=== PATIENT | female | born 1960 | race Caucasian/White ===

== ENCOUNTER 2020-10-25 20:03 | Emergency (ER) | payer OTHER, SELFPAY ==
[2020-10-25] VITALS (22 sets, daily range): BP systolic 138–188; BP diastolic 74–117; PULSE 71–86; RESP 14–23; TEMP 36.9; O2SAT 96–100
--- NOTE | ~2020-10-25 | CT_ITS ---
EXAMINATION: CT BRAIN W/O DATE: 10/25/2020 22:20 INDICATION: Headache TECHNIQUE: Computed tomography (CT) of the head was performed without intravenous contrast. The dose- length product was 605.33 mGy-cm. The mA was adjusted according to patient size. Iterative reconstruc tion technique was employed. COMPARISON: No prior studies for comparison. FINDINGS: Normal brain parenchymal volume for age. Normal sigala-white differentiation. No acute intrac ranial hemorrhage, infarction, mass or mass effect. There is metallic artifact in the right middle cr anial fossa medially, possibly aneurysm clip. Correlate clinically. No ventriculomegaly or midline shift. Midline sagittal images demonstrate a normal corpus callosum, c raniovertebral junction and sella turcica. Basilar cisterns are patent. Paranasal sinuses and mastoids are pneumatized. No depressed skull fractures. IMPRESSION: 1. No acute intracranial abnormality. Reviewed, dictated and finalized at location A. NG SOAKER
--- NOTE | ~2020-10-25 | XR_ITS ---
XR chest 2V 10/25/2020 21:05 Indication: Hypertension. Headache. Procedure: 2 view chest Comparison: 01/08/2017 Findings: There are infiltrates of the left mid and lower lung zone. There is pleural thickening in t he left lower thorax. Small left effusion. No acute osseous abnormality. Status post cholecystectomy. No pneumothorax. No edema. No acute osseous abnormality. Impression: 1: Focal consolidation left mid and lower lung zone which may represent atelectasis/scarring or pneum onia. 2: Small left pleural effusion versus pleural thickening. Reviewed, dictated and finalized at location A. R TECHNICIAN Impression: 1: Focal consolidation left mid and lower lung zone which may represent atelect asis/scarring or pneumonia. 2: Small left pleural effusion versus pleural thickening.
--- NOTE | 2020-10-25 20:14 | ECG_ITS ---
Measurements Intervals [place] Rate: 74 P: 28 MA: 138 QRS: -6 QRSD: 102 T: 31 QT: 404 QTc: 451 Interpretive Statements SINUS RHYTHM NORMAL ECG Electronically Signed On 10-26-2020 7:15:02 CUSTOM FURRIER by Miah Brewer D.O.
--- NOTE | 2020-10-25 20:59 | PC.NURSE ---
Patient being taken to xray.
[2020-10-25 21:17] LABS: Basophils Percent Auto 0.4 % (0.2-1.2); Eosinophils Absolute Auto 0.2 K/mm3 (0-0.3); Eosinophils Percent Auto 2.7 % (0-4.4); Hematocrit 38.5 % (37.0-47.0); Hemoglobin 12.5 g/dL (12.0-15.0); Immature Granulocyte Absolute 0.03 K/mm3 (0.00-0.031); Immature Granulocyte Percent A 0.4 % (0-0.5); Lymphocytes Absolute Auto 2.53 K/mm3 (0.9-3.2); Lymphocytes Percent Auto 36.2 % (18.3-44.2); Mean Corpuscular HGB Conc 32.5 g/dl (32-36); Mean Corpuscular Hemoglobin 27.7 pg (26-34); Mean Corpuscular Volume 85.4 fl (80-100); Mean Platelet Volume 10.4 fl (7.4-10.4); Monocytes Absolute Auto 0.6 K/mm3 (0.1-0.6); Neutrophils Absolute Auto 3.6 K/mm3 (1.3-6.7); Neutrophils Percent Auto 51.3 % (45.5-73.1); Platelet Count Result 247 k/mm3 (150-375); Red Blood Count 4.51 M/mm3 (4.2-5.4); Red Cell Distribution Width 14.2 % (11.5-14.5)
--- NOTE | 2020-10-25 21:23 | ED.GENADULT ---
HPI - General Adult General Chief complaint: Recheck/Abnormal Lab/Rx Stated complaint: elevated blood pressure Time Seen by Provider: 10/25/20 21:07 Source: patient Mode of arrival: ambulatory Limitations: no limitations History of Present Illness HPI narrative: Patient is 60-year-old female complaining of elevated blood pressure accompanied by headache, frontal, dull, 6 out of 10, nonradiating, intermittent set approximately 3 days ago. Patient also states that she had palpitations yesterday but none today. Patient denies any speech or visual disturbance, weakness, numbness, unsteady gait, chest pain, shortness of breath, dull pain, nausea, vomiting, diaphoresis, fever or chills. Patient denies any history of hypertension. Related Data Allergies Allergy/AdvReac Type Severity Reaction Status Date / Time No Known Allergies Allergy Verified 10/25/20 20:39 Review of Systems Review of Systems: All systems reviewed & are unremarkable except as noted in HPI and below Constitutional: Constitutional: Denies body ache(s), Denies chills, Denies excessive sweating, Denies fatigue, Denies fever(s), Denies headache(s), Denies lethargy, Denies malaise, Denies weakness and Denies weight loss Eyes: Eyes: Denies blurry vision, Denies change in vision and Denies loss of vision ENT: Denies dizziness, Denies ear discharge, Denies headache(s), Denies lip swelling, Denies epistaxis, Denies nasal congestion, Denies neck pain, Denies throat swelling and Denies tongue swelling Cardiovascular: Cardiovascular: Denies chest pain, Denies chest pain at rest, Denies chest pain with activity, Denies diaphoresis, Denies rapid heart rate, Denies edema, Denies irregular heart rhythm, Denies lightheadedness, Denies dyspnea and Denies dyspnea on exertion Respiratory: Respiratory: Denies chest congestion, Denies cough, Denies hemoptysis, Denies dyspnea and Denies dyspnea on exertion Gastrointestinal: Gastrointestinal: Denies abdominal pain, Denies melena, Denies hematochezia, Denies diarrhea, Denies nausea, Denies vomiting and Denies hematemesis Musculoskeletal: Musculoskeletal: Denies abnormal gait, Denies deformity, Denies joint swelling, Denies limited range of motion, Denies neck pain and Denies numbness Neurologic: Denies Abnormal speech present, Denies abnormal gait, Denies confusion, Denies dizziness, Denies focal weakness, Denies loss of vision, Denies numbness, Denies Other visual disturbances, Denies Sensory deficit (Neuro) and Denies weakness Psychiatric: Psychiatric: Denies confusion, Denies depression, Denies auditory hallucinations, Denies homicidal ideation and Denies suicidal ideation Endocrine: Endocrine: Denies cold intolerance, Denies excessive sweating, Denies fatigue, Denies heat intolerance and Denies palpitations Hematologic/Lymphatic: Hematologic/Lymphatic: Denies easy bleeding and Denies easy bruising Allergic/Immunologic: Allergic/Immunologic: Denies lip swelling, Denies throat swelling and Denies tongue swelling Exam Const: General: cooperative, healthy appearing, comfortable, no acute distress, well developed, alert and awake; No confusion Orientation/consciousness: oriented to person, oriented to place, oriented to time, patient oriented x3 and No confusion Limitations: no limitations HENMT: Head: normal to inspection, normocephalic and atraumatic Ears: hearing grossly normal bilaterally, TM normal on the right and TM normal on the left General nose exam: Normal external nose present, Normal nares present and No nasal discharge present Face and sinus: normal facial exam Mouth: Yes Normal oral and palatal mucosa present, Yes lip normal, Yes tongue normal and Yes oropharynx normal Throat: posterior oropharynx normal, tonsils normal and uvula midline Eyes: General: appearance normal, both eyes and all related structures Pupils: Equal, round and reactive pupils present EOM: EOMs intact bilaterally Neck: Neck: normal visual inspection, full
[2020-10-25 22:08] LABS: Anion Gap 6 mmol/L (8-16); Blood Urea Nitrogen 20 mg/dL (7-17); Carbon Dioxide 30 mmol/L (22-30); Chloride 106 mmol/L (98-107); Estimated CRCL calculation 96 ml/min; Estimated Glomerular Filt Rate > 60; Glucose 115 mg/dL (65-105); INR 0.9; Potassium 3.8 mmol/L (3.4-5.0); Prothrombin Time 12.6 Seconds (11.1-14.7); Sodium 142 mmol/L (137-145)
[2020-10-25 22:10] LABS: Partial Thromboplastin Time 30.3 SECONDS (22.3-36.8)
[2020-10-25 22:20] LABS: Troponin I < 0.012 ng/mL (0.000-0.034)
== END 2020-10-25 23:15 | disposition home or self-care (01) ==
PROVIDERS: Emergency Medicine; Emergency Provider Emergency Medicine
DX: R03.0 Elevated blood-pressure reading, without diagnosis of hypertension (principal); R51.9 Headache, unspecified
CPT/HCPCS: 36415; 70450; 71046; 80048; 84484; 85025; 85610; 85730; 93005; 99284

== ENCOUNTER 2020-11-01 09:22 | Outpatient (CLI) | payer OTHER, SELFPAY ==
--- NOTE | ~2020-11-01 | US_ITS ---
EXAMINATION: US retroperitoneal duplex ltd DATE: 11/01/2020 10:06 SIGNAL MANAGER INDICATION: Hypertension TECHNIQUE: Multiple grayscale, color Doppler, and pulsed Doppler images of the kidneys and renal charline brandon were obtained. COMPARISON: None. FINDINGS: The aorta peak systolic velocity is 121 cm/s. The right renal artery peak systolic velocity is 77 cm/ s in the proximal segment, 147 cm/s in the mid segment, 66 cm/s in the distal segment. The left renal artery peak systolic velocity is 103 cm/s in the proximal segment, 102 cm/s in the mid segment, 115 cm/s in the distal segment. The renal artery/aorta systolic ratio on the right is 0.7 and on the left is 0.84. Notes: renal artery stenosis is >=180-200 cm/s or >3.5:1 ratio of renal artery velocity to aorta. Thi s correlates with >50-60% stenosis. IMPRESSION: 1. No Doppler evidence of renal artery stenosis. Reviewed, dictated and finalized at location B. AL MANAGER
[2020-11-05 11:47] LABS: Metanephrine, Free <25 pg/mL (<=57); Normetanephrine, Free 165 pg/mL (<=148); Total, Free (MN + NMN) 165 pg/mL (<=205)
[2020-11-08 15:53] LABS: PRA <0.04 ng/mL/h (0.25-5.82)
== END 2020-11-01 09:23 | disposition home or self-care (01) ==
DX: I10 Essential (primary) hypertension (principal)
CPT/HCPCS: 36415; 82088; 83835; 84244; 93976

== ENCOUNTER 2020-11-22 12:48 | Outpatient (CLI) | payer OTHER, SELFPAY ==
--- NOTE | 2020-11-22 | ECHO_ITS ---
Patient Info Name: Jeremias Mojica Age: 60 years : 1960 Gender: Female Ht: 66 in Wt: 269 lbs BSA: 2.45 m2 HR: 60 bpm BP: 151 / 86 mmHg Heart Rhythm: Sinus Rhythm Technical Quality: Good Exam Date: 11/22/2020 1:31 PM Exam Location: [facility] Patient Status: Outpatient Admit Date: 11/22/2020 Staff Ordering Physician: Sharath Tirado MD Signal Processing Engineer: Austin Pierson RDCS, RT Attending Provider: Sharath Tirado MD Referring Physician: Celestino JOHNSON; Exam Type: CA echo doppler color flow Study Info Indications I10 - Essential (primary) hypertension Complete two-dimensional, color flow and Doppler transthoracic echocardiogram is performed. Strain analysis performed. Summary 1. Complete two-dimensional, color flow and Doppler transthoracic echocardiogram is performed. 2. Normal left ventricular size with mild concentric left ventricular hypertrophy and no focal wall motion abnormalities. Ejection fraction visually is estimated 60-65%. Normal diastolic function. The global longitudinal strain was slightly diminished at-16% suggesting a degree of systolic dysfunction. 3. Left atrial chamber dimension is mildly enlarged. 4. No significant valve disease. 5. No pulmonary hypertension, estimated pulmonary arterial systolic pressure is 30 mmHg. 6. Normal sinus rhythm. Left Ventricle Left ventricular chamber dimension is normal. Left ventricular systolic function is normal, estimated at 60-65%. There is mildly increased left ventricular wall thickness. Left ventricular septal wall motion is normal. The left ventricular diastolic function is normal. Global longitudinal strain is mildly elevated at 16 %. Right Ventricle Right ventricular chamber dimension is normal. Right ventricular systolic function is normal. Left Atria Left atrial chamber dimension is mildly enlarged. Right Atria Right atrial chamber dimension is normal. Aortic Valve The aortic valve is trileaflet. There is no aortic valve sclerosis. There is no aortic valve stenosis. There is no aortic valve regurgitation. Pulmonic Valve The pulmonic valve is normal. There is no pulmonic valve stenosis. There is no pulmonic regurgitation. Mitral Valve The mitral valve has normal leaflets. There is no mitral valve stenosis. There is trace mitral valve regurgitation. Tricuspid Valve The tricuspid valve leaflets are normal. There is no significant tricuspid valve stenosis. There is trace tricuspid valve regurgitation. No pulmonary hypertension, estimated pulmonary arterial systolic pressure is 30 mmHg. Pericardium/Pleural The pericardium appears normal. There is no pericardial effusion. Inferior Vena Cava Normal inferior vena cava with >50% collapse upon inspiration consistent with Empty right atrial pressure, 5 mmHg. Aorta The aortic root size at the sinus of Valsalva is normal. The prox ascending aorta size is normal. Left Ventricular Outflow Tract Name Value Normal LVOT 2D LVOT Diameter 2.0 cm LVOT Doppler LVOT Peak Gradient 4 mmHg LVOT Mean Gradient
== END 2020-11-22 12:49 | disposition home or self-care (01) ==
DX: I10 Essential (primary) hypertension (principal)
CPT/HCPCS: 93306

== ENCOUNTER 2020-12-24 23:14 | Inpatient (IN) | payer OTHER, SELFPAY ==
--- NOTE | ~2020-12-24 | XR_ITS ---
EXAMINATION: XR chest 1V portable DATE: 12/24/2020 23:58 INDICATION: Midsternal chest pain. TECHNIQUE: A single frontal view of the chest was obtained. COMPARISON: Chest 2 views 10/25/2020, chest CT 12/25/2020 FINDINGS: There is chronic pleural thickening on the left. There are airspace opacities in left mid a nd lower lung zones, likely atelectasis. No significant pleural effusion. No pneumothorax. The heart size is normal. IMPRESSION: 1. Chronic left-sided pleural thickening with chronic mild atelectasis in left mid and lower lung zon es. Reviewed, dictated and finalized at location A. IMPRESSION: 1. Chronic left-sided pleural thickening with chronic mild atelectasis in left mid and lower lung zones.
--- NOTE | ~2020-12-24 | CT_ITS ---
EXAMINATION: CTA chest PE protocol DATE: 12/25/2020 01:06 INDICATION: Shortness of breath. TECHNIQUE: Computed tomography angiography (CTA) of the chest was performed with 100 mL Omnipaque-350 intravenous contrast timed to evaluate the pulmonary arteries. Coronal maximum intensity projection 3D-reconstructions were created by the technologist. Automated exposure control and iterative reconst ruction technique were employed. The dose-length product was 923.52 mGy-cm. COMPARISON: Chest CT 06/17/2016 FINDINGS: There is chronic pleural thickening in left hemithorax. There is volume loss of left hemith orax with peripheral rounded atelectasis in left upper and lower lobes. No pleural effusion. The hear t size is normal. No pleural effusion. There is no pulmonary embolus. There are changes of cholecyste ctomy. There is a 2.3 cm thyroid nodule. There are changes of cholecystectomy. IMPRESSION: 1. No pulmonary embolus. 2. Chronic pleural thickening in left hemithorax with peripheral rounded atelectasis in left lung. 3. Worsened thyroid nodule. Ultrasound-guided fine-needle aspiration is recommended. Reviewed, dictated and finalized at location A. IMPRESSION: 1. No pulmonary embolus. 2. Chronic pleural thickening in left hemithorax with peripheral rounded atelec tasis in left lung. 3. Worsened thyroid nodule. Ultrasound-guided fine-needle aspiration is recomme nded.
--- NOTE | 2020-12-24 23:15 | ECG_ITS ---
Measurements Intervals [place] Rate: 166 P: FL: 0 QRS: 67 QRSD: 91 T: 29 QT: 261 QTc: 435 Interpretive Statements ATRIAL FIBRILLATION WITH RAPID VENTRICULAR RESPONSE INCOMPLETE RIGHT BUNDLE BRANCH BLOCK BORDERLINE ST ABNORMALITY- ANTEROLAT/INF LEADS BASELINE ARTIFACT- II, III, AVF ABNORMAL ECG Electronically Signed On 12-25-2020 7:06:53 CDT by Miah Brewer D.O.
[2020-12-24 23:18] VITALS: BP 214/178; PULSE 109; RESP 24; TEMP 36.3; O2SAT 99
[2020-12-24] MEDS: dilTIAZem HCl INJ 25 MG/5 ML VIAL (23:35)
--- NOTE | 2020-12-24 23:36 | PC.NURSE ---
Pacer pads applied to pt. Pt presents to ED from home with complaints of chest pain and left arm pain at approx 2200 while sleeping. EDMD presented to bedside; gave verbal order for 20mg cardizem. Pt noted to be alert and oriented x4. Breathing noted to be even and unlabored. Spouse at bedside.
--- NOTE | 2020-12-24 23:49 | ED.CHESTPAIN ---
HPI - Chest Pain General Chief Complaint: Chest Pain Stated Complaint: chest pain Time Seen by Provider: 12/24/20 23:47 Source: patient Mode of arrival: ambulatory Limitations: no limitations History of Present Illness HPI narrative: Patient is a 60-year-old female complaining of chest pain, substernal, 5 out of 10, dull, nonradiating accompanied by palpitations and shortness of breath that started prior to arrival. Related Data Home Medications Medication Instructions Recorded Confirmed amlodipine 12/24/20 lisinopril 12/24/20 metoprolol succinate PO 12/24/20 Allergies Allergy/AdvReac Type Severity Reaction Status Date / Time No Known Allergies Allergy Verified 12/24/20 23:21 Review of Systems Review of Systems: All systems reviewed & are unremarkable except as noted in HPI and below Constitutional: Constitutional: Denies body ache(s), Denies chills, Denies excessive sweating, Denies fatigue, Denies fever(s), Denies headache(s), Denies lethargy, Denies malaise, Denies weakness and Denies weight loss Eyes: Eyes: Denies blurry vision, Denies change in vision and Denies loss of vision ENT: Denies dizziness, Denies ear discharge, Denies headache(s), Denies lip swelling, Denies epistaxis, Denies nasal congestion, Denies neck pain, Denies throat swelling and Denies tongue swelling Cardiovascular: Cardiovascular: Denies diaphoresis, Denies edema, Denies irregular heart rhythm and Denies lightheadedness Respiratory: Respiratory: Denies chest congestion, Denies cough and Denies hemoptysis Gastrointestinal: Gastrointestinal: Denies abdominal pain, Denies melena, Denies hematochezia, Denies diarrhea, Denies nausea, Denies vomiting and Denies hematemesis Musculoskeletal: Musculoskeletal: Denies abnormal gait, Denies deformity, Denies joint swelling, Denies limited range of motion, Denies neck pain and Denies numbness Neurologic: Denies Abnormal speech present, Denies abnormal gait, Denies confusion, Denies dizziness, Denies headache(s), Denies focal weakness, Denies loss of vision, Denies numbness, Denies Other visual disturbances, Denies Sensory deficit (Neuro) and Denies weakness Psychiatric: Psychiatric: Denies confusion, Denies depression, Denies auditory hallucinations, Denies homicidal ideation and Denies suicidal ideation Endocrine: Endocrine: Denies cold intolerance, Denies excessive sweating, Denies fatigue, Denies heat intolerance and Denies palpitations Hematologic/Lymphatic: Hematologic/Lymphatic: Denies easy bleeding and Denies easy bruising Allergic/Immunologic: Allergic/Immunologic: Denies lip swelling, Denies throat swelling and Denies tongue swelling [facility] Social History Social History Gender identity (if verbalized by the patient): Female Sexual Orientation (if Verbalized by the Patient): Straight or Heterosexual Comments Past medical history: Hypertension Family history: Negative for coronary artery disease Social history: Non-smoker, no EtOH or drug use Exam Const: General: cooperative, healthy appearing, comfortable, well developed, alert and awake; No confusion Orientation/consciousness: oriented to person, oriented to place, oriented to time, patient oriented x3 and No confusion Limitations: no limitations Other: Moderate distress HENMT: Head: normal to inspection, normocephalic and atraumatic Ears: hearing grossly normal bilaterally, TM normal on the right and TM normal on the left General nose exam: Normal external nose present, Normal nares present and No nasal discharge present Face and sinus: normal facial exam Mouth: Yes Normal oral and palatal mucosa present, Yes lip normal, Yes tongue normal and Yes oropharynx normal Throat: posterior oropharynx normal, tonsils normal and uvula midline Eyes: General: appearance normal, both eyes and all related structures Pupils: Equal, round and reactive pupils present EOM: EOMs intact bilate
[2020-12-24 23:50] VITALS: BP 146/88; PULSE 129; RESP 18; O2SAT 98
[2020-12-25] VITALS (22 sets, daily range): BP systolic 108–140; BP diastolic 57–89; PULSE 10–153; RESP 18–19; TEMP 35.9–36.7; O2SAT 95–99
[2020-12-25 00:09] LABS: Basophils Percent Auto 0.5 % (0.2-1.2); Eosinophils Absolute Auto 0.2 K/mm3 (0-0.3); Eosinophils Percent Auto 2.9 % (0-4.4); Hematocrit 44.1 % (37.0-47.0); Hemoglobin 14.1 g/dL (12.0-15.0); Immature Granulocyte Absolute 0.03 K/mm3 (0.00-0.031); Immature Granulocyte Percent A 0.4 % (0-0.5); Lymphocytes Absolute Auto 2.84 K/mm3 (0.9-3.2); Lymphocytes Percent Auto 37.3 % (18.3-44.2); Mean Corpuscular Hemoglobin 28.2 pg (26-34); Mean Corpuscular Volume 88.2 fl (80-100); Mean Platelet Volume 10.3 fl (7.4-10.4); Monocytes Absolute Auto 0.8 K/mm3 (0.1-0.6); Monocytes Percent Auto 10.6 % (2.6-8.5); Neutrophils Absolute Auto 3.7 K/mm3 (1.3-6.7); Neutrophils Percent Auto 48.3 % (45.5-73.1); Platelet Count Result 251 k/mm3 (150-375); Red Cell Distribution Width 14.2 % (11.5-14.5); White Blood Count 7.6 K/mm3 (4.5-10.0)
[2020-12-25 00:11] LABS: Potassium 3.7 mmol/L (3.4-5.0)
[2020-12-25 00:14] LABS: Anion Gap 9 mmol/L (8-16); Blood Urea Nitrogen 21 mg/dL (7-17); Calcium 9.2 mg/dL (8.4-10.2); Carbon Dioxide 28 mmol/L (22-30); Chloride 106 mmol/L (98-107); Estimated CRCL calculation 77 ml/min; Estimated Glomerular Filt Rate > 60; Glucose 116 mg/dL (65-105); Sodium 143 mmol/L (137-145)
[2020-12-25] MEDS: dilTIAZem HCl INJ 25 MG/5 ML VIAL 20 MG IV PUSH (00:16)
[2020-12-25 00:19] LABS: D Dimer 1.04 ug/mL (<0.48)
[2020-12-25] MEDS: ASPIRIN 81 MG CHEWABLE TABLET 324 MG PO (00:23)
[2020-12-25 00:24] LABS: Troponin I < 0.012 ng/mL (0.000-0.034)
[2020-12-25 01:50] LABS: Free T4 Free Thyroxine Reflex 1.12 ng/dL (0.78-2.19)
[2020-12-25 02:34] LABS: Total Triiodothyronine (T3) 1.49 NG/ML (0.97-1.69)
[2020-12-25 02:39] LABS: Lactic Acid Reflex 0.9 mmol/L (0.7-2.1)
[2020-12-25 02:52] LABS: Troponin I < 0.012 ng/mL (0.000-0.034)
--- NOTE | 2020-12-25 03:42 | ECHO_ITS ---
Patient Info Name: Jeremias Mojica Age: 60 years : 1960 Gender: Female Ht: 66 in Wt: 272 lbs BSA: 2.46 m2 HR: 69 bpm BP: 127 / 89 mmHg Heart Rhythm: Sinus Rhythm Technical Quality: Good Exam Date: 12/25/2020 11:26 AM Exam Location: [facility] Patient Status: Inpatient Admit Date: 12/25/2020 Staff Ordering Physician: Orestes Yap MD Second Baker: Austin Pierson RDCS, RT Attending Provider: Orestes Yap MD Referring Physician: Fracisco SINGLETARY; Exam Type: CA echo doppler color flow Study Info Indications I45.89 - Other specified conduction disorders I48.1 - Persistent atrial fibrillation Complete two-dimensional, color flow and Doppler transthoracic echocardiogram is performed. Strain analysis performed. Summary 1. Complete two-dimensional, color flow and Doppler transthoracic echocardiogram is performed. 2. Left ventricular systolic function is normal, estimated at 65-70%. 3. There is mildly increased left ventricular wall thickness. 4. The left ventricular diastolic function is grade II diastolic dysfunction. 5. There is no aortic valve stenosis. 6. There is trace mitral valve regurgitation. 7. There is trace tricuspid valve regurgitation. 8. No pulmonary hypertension, estimated pulmonary arterial systolic pressure is 23 mmHg. Left Ventricle Left ventricular chamber dimension is normal. Left ventricular systolic function is normal, estimated at 65-70%. There is mildly increased left ventricular wall thickness. The left ventricular diastolic function is grade II diastolic dysfunction. Global longitudinal strain is mildly elevated at -16 %. Right Ventricle Right ventricular chamber dimension is normal. Right ventricular systolic function is normal. Left Atria Left atrial chamber dimension is normal. Right Atria Right atrial chamber dimension is normal. Aortic Valve The aortic valve is trileaflet. There is no aortic valve stenosis. There is no aortic valve regurgitation. Pulmonic Valve The pulmonic valve is not well visualized. Mitral Valve The mitral valve has normal leaflets. There is trace mitral valve regurgitation. Tricuspid Valve The tricuspid valve leaflets are normal. There is trace tricuspid valve regurgitation. No pulmonary hypertension, estimated pulmonary arterial systolic pressure is 23 mmHg. Pericardium/Pleural The pericardium appears normal. There is small pericardial effusion. Inferior Vena Cava Normal inferior vena cava with >50% collapse upon inspiration consistent with normal right atrial pressure, 5 mmHg. Aorta The aortic root size at the sinus of Valsalva is normal. Left Ventricular Outflow Tract Name Value Normal LVOT 2D LVOT Diameter 2.0 cm LVOT Doppler LVOT Peak Gradient 5 mmHg LVOT Mean Gradient 2 mmHg LVOT VTI 23 cm LVOT VTI/AV VTI Ratio 0.7 LVOT Stroke Volume 72 ml LVOT CO 4.4 l/min LVOT CI 1.8
--- NOTE | 2020-12-25 03:42 | PM.IMHP ---
H&P: HPI History of Present Illness Date/Time: 12/25/20 03:42 Chief Complaint: Palpitations and chest pain that woke her up from sleep tonight++ Narrative: This is a morbidly obese 60-year-old female with known history of poorly controlled hypertension who is seeing endocrinology for same and [facility] waking up around 10:00 p.m. this evening with palpitations and substernal chest discomfort. Associated symptoms included shortness of breath. The patient mentions that she has had a previous episode in the past of palpitations but did not seek medical attention at that time. The patient reports that she had COVID-19 back in August. This past week the patient has had respiratory symptoms with cough, fever, and congestion. She was evaluated emergency room this evening and found to be in rapid atrial fibrillation with heart rates in the 140s to 160s. She was treated with 2 IV boluses of Cardizem and placed on a Cardizem IV drip. Routine labs were obtained which were virtually unremarkable and CTA chest was performed which was negative for acute pulmonary embolism but did demonstrate pneumonia. The patient was treated with IV antibiotics. We were asked to admit the patient to the hospital for her new onset rapid atrial fibrillation in pneumonia. She also denies any headache, blurry vision, abdominal pain, nausea, vomiting, lightheadedness, dysuria, hematuria, diarrhea, bloody stools, or lower extremity swelling. She has no other complaints this time. Review of Systems Review of Systems: All systems reviewed & are unremarkable except as noted in HPI and below PMFSH Past Medical History Medical History (Updated 12/25/20 @ 03:49 by Orestes Yap MD) Chronic hypertension DVT (deep venous thrombosis) Surgical History Surgical History (Updated 12/25/20 @ 03:46 by Orestes Yap MD) History of cholecystectomy Family History Family History (Updated 12/25/20 @ 03:46 by Orestes Yap MD) Sibling Multiple myeloma Social History Social History Smoking status: Never smoker Alcohol intake: never Substance use: never Gender identity (if verbalized by the patient): Female Sexual Orientation (if Verbalized by the Patient): Straight or Heterosexual Spiritual care concerns: No Meds Home Medications and Allergies Home Medications Medication Instructions Recorded Confirmed Type amlodipine 5 mg PO DAILY 12/24/20 12/25/20 History lisinopril 40 mg PO DAILY 12/24/20 12/25/20 History Allergies Allergy/AdvReac Type Severity Reaction Status Date / Time No Known Allergies Allergy Verified 12/24/20 23:21 Vital Signs Vital Signs - 24 hr 12/24/20 23:18 12/24/20 23:50 12/25/20 00:20 Temperature 36.3 C L Pulse Rate 109 H 129 H 153 H Respiratory Rate 24 H 18 Blood Pressure 214/178 H 146/88 H 136/68 Pulse Oximetry 99 98 12/25/20 01:09 Temperature Pulse Rate 127 H Respiratory Rate Blood Pressure 131/86 Pulse Oximetry Exam Const: General: cooperative, alert, awake, acute distress and ill appearing Nutritional Appearance: obese morbidly obese Orientation/consciousness: patient oriented x3 HENMT: Head: normal to inspection General nose exam: Normal external nose present Face and sinus: normal facial exam Mouth: Yes Normal oral and palatal mucosa present and Yes oropharynx normal Eyes: Pupils: Equal, round and reactive pupils present EOM: EOMs intact bilaterally Neck: Neck: supple and no JVD Thyroid: thyroid normal Lymphatic: lymphadenopathy not noted Resp: Effort & Inspection: normal respiratory effort Auscultation: clear to auscultation bilaterally Cardio: Rate: tachycardic Rhythm: abnormal rhythm irregularly irregular Heart sounds: no murmurs GI: Inspection: normal to inspection Auscultation: normal bowel sounds Skin: General skin exam: normal color and no rashes or lesions noted
[2020-12-25] MEDS: METOPROLOL TARTRATE INJ 5 MG/5 ML VIAL IV PUSH (03:46)
--- NOTE | 2020-12-25 04:04 | PC.NURSE ---
Pt resting on cart in its lowest position with call button and personal items within reach. Pt remains alert and oriented x4. Breathing even and unlabored and pt in no obvious distress at this time. Spouse at bedside. Pt aware of poc and all questions and concerns addressed. Pt advised to press call button for assistance.
--- NOTE | 2020-12-25 04:42 | PC.NURSE ---
Receiving nurse, Zohra given report. Ok to send pt to unit.
[2020-12-25 04:44] LABS: INR 0.9; Partial Thromboplastin Time 28.1 SECONDS (22.3-36.8); Prothrombin Time 12.3 Seconds (11.1-14.7)
[2020-12-25] MEDS: ENOXAPARIN 120 MG/0.8 ML SYRINGE SUB-Q (05:00)
[2020-12-25 07:31] LABS: Basophils Absolute Auto 0.1 K/mm3 (0.0-0.1); Basophils Percent Auto 0.8 % (0.2-1.2); Eosinophils Absolute Auto 0.1 K/mm3 (0-0.3); Eosinophils Percent Auto 1.5 % (0-4.4); Hematocrit 39.5 % (37.0-47.0); Hemoglobin 13.1 g/dL (12.0-15.0); Immature Granulocyte Absolute 0.01 K/mm3 (0.00-0.031); Immature Granulocyte Percent A 0.2 % (0-0.5); Lymphocytes Absolute Auto 1.96 K/mm3 (0.9-3.2); Mean Corpuscular HGB Conc 33.2 g/dl (32-36); Mean Corpuscular Hemoglobin 28.4 pg (26-34); Mean Corpuscular Volume 85.7 fl (80-100); Mean Platelet Volume 10.2 fl (7.4-10.4); Monocytes Absolute Auto 0.6 K/mm3 (0.1-0.6); Monocytes Percent Auto 8.7 % (2.6-8.5); Neutrophils Absolute Auto 3.9 K/mm3 (1.3-6.7); Neutrophils Percent Auto 58.8 % (45.5-73.1); Platelet Count Result 249 k/mm3 (150-375); Red Blood Count 4.61 M/mm3 (4.2-5.4); Red Cell Distribution Width 14.2 % (11.5-14.5); White Blood Count 6.5 K/mm3 (4.5-10.0)
[2020-12-25 07:33] LABS: Lipase 138 U/L (23-300)
[2020-12-25 07:36] LABS: Anion Gap 5 mmol/L (8-16); Blood Urea Nitrogen 13 mg/dL (7-17); Calcium 8.8 mg/dL (8.4-10.2); Carbon Dioxide 28 mmol/L (22-30); Chloride 107 mmol/L (98-107); Estimated CRCL calculation 97 ml/min; Estimated Glomerular Filt Rate > 60; Glucose 134 mg/dL (65-105); Magnesium 1.8 mg/dL (1.6-2.3); Potassium 3.7 mmol/L (3.4-5.0); Sodium 140 mmol/L (137-145)
[2020-12-25 07:37] LABS: Cholesterol 189 mg/dL (0-200); HDL Direct 57 mg/dL; Triglycerides 56 mg/dL (<150)
--- NOTE | 2020-12-25 07:38 | ECG_ITS ---
Measurements Intervals [place] Rate: 64 P: -3 UT: 96 QRS: 9 QRSD: 96 T: 16 QT: 439 QTc: 455 Interpretive Statements SINUS RHYTHM WITH SHORT UT INTERVAL BASELINE ARTIFACT- I, II, AVR, AVL, V4 BORDERLINE ECG Electronically Signed On 12-25-2020 8:02:24 CDT by Miah Brewer D.O.
[2020-12-25 07:45] LABS: Troponin I < 0.012 ng/mL (0.000-0.034)
[2020-12-25 07:48] LABS: LDL Cholesterol Direct 96 mg/dL
--- NOTE | 2020-12-25 11:43 | PM.CNCAR ---
Assessment and Plan Assessment and plan (1) Atrial fibrillation with rapid ventricular response: Code(s): I48.91 - Unspecified atrial fibrillation Status: Acute Assessment and Plan: Symptomatic, rapid ventricular response at presentation presumed new diagnosis converted to and maintaining sinus rhythm this morning. Explained pathophysiology, management options including cardioversion, medical therapy, contributing risk factors of atrial fibrillation and embolic stroke risk versus bleeding risk. Patient's CHADS2 Vasc score 2 (HTN, female sex) systemic anticoagulation warranted. We discussed this balance at great length. All questions answered to their satisfaction. They are in agreement with plan of care. Initiate Eliquis 5 mg b.i.d.. Do not take aspirin concomitantly. Discussed metoprolol versus diltiazem continuation for rate control and suppression. Given difficulty with controlling blood pressure and control after receiving IV diltiazem will transition to diltiazem 30 mg p.o. q.8 hours today and depending on BP diltiazem CD 120 or 180 mg daily starting tomorrow morning. If stable overnight maintaining sinus rhythm disposition per hospitalist service but okay with discharge home. She will then follow-up with me in the office within the next 4 weeks. Patient previously followed by Cardiology for palpitations no clear or variable history of documented atrial fibrillation per available records or patient account. Normal EF 60-65% 11/22/2020, normal pulmonary pressures, no significant valve disease, normal diastolic function. (2) Chest pain: Qualifiers: Chest pain type: unspecified Qualified Code(s): R07.9 - Chest pain, unspecified Code(s): R07.9 - Chest pain, unspecified Status: Acute Assessment and Plan: Atypical, occurred in setting of pneumonia and atrial fibrillation with rapid ventral response, resolved with heart rate control. No recurrence. Ruled out for myocardial infarction with negative serial cardiac enzymes. No evidence for ACS. If recurrence other circumstances ischemic evaluation may be considered as an outpatient. (3) Pneumonia: Qualifiers: Laterality: left Lung location: unspecified part of lung Pneumonia type: due to unspecified organism Qualified Code(s): J18.9 - Pneumonia, unspecified organism Code(s): J18.9 - Pneumonia, unspecified organism Status: Acute Assessment and Plan: Per hospitalist service. Patient much improved control rate AFib and initiation of IV antibiotics. Disposition in this regard per hospitalist service. (4) Chronic hypertension: Code(s): I10 - Essential (primary) hypertension Status: Chronic Assessment and Plan: As above. Although metoprolol preferred for rate control in AFib given control blood pressure will continue with diltiazem as above. Continue lisinopril. Discontinue amlodipine while on diltiazem. (5) Morbid obesity: Code(s): E66.01 - Morbid (severe) obesity due to excess calories Status: Acute Assessment and Plan: Discussed lifestyle modification, weight loss also in reducing likelihood of AFib recurrence. Minimize stimulant and caffeine intake. History of Present Illness History of Present Illness Consult date/time: Date of service: 12/25/20 11:43 Cardiology consultation at the request of Dr. Yap for opinion regarding chest pain in atrial fibrillation with rapid ventricular response. Requesting physician: Orestes Yap MD Consult reason: atrial fibrillation Reason For Visit: ATRIAL FIB WITH RVR, PNEUMONIA, CHEST PAIN Narrative: Patient is a very pleasant 60-year-old female with a past medical history for COVID-09 September 2020, or recent discovery of refractory hypertension with systolic blood pressure ranging 140's-190's, morbid obesity and history of intermittent palpitations over the past several years previously followed by Cardiology but no re
[2020-12-25] MEDS: dilTIAZem HCL 30 MG TABLET PO ×2 (12:27→20:19)
--- NOTE | 2020-12-25 14:10 | PM.IMPN ---
Progress Note: A&P Assessment and Plan (1) Atrial fibrillation with rapid ventricular response: Code(s): I48.91 - Unspecified atrial fibrillation Status: Acute Assessment and Plan: Admit to IMU. CHADSVASc score 2. Continue Cardizem IV for rate control. She will receive a dose of Lopressor IV in the ER. TSH w/ reflex T4. Echocardiogram. Therapeutic Lovenox SC for anticoagulation. Cardiology consultation for New onset atrial fibrillation 12/25/20 14:10 Patient is 60-year-old female and a complaint palpitation on and off for over a year however last night patient awakens with a palpitation and shortness of breath presented to emergency depart, patient was in A. fibrillation with RVR, patient was given IV diltiazem and then started on drip that has trended down her heart rate, upon arrival patient had a significant elevated systolic blood pressure of 214/178 there has also improved with diltiazem drip, patient was seen by Multiple Knife Edge Trimmer Operator and patient's CHADS2 Vasc score 2 and started the patient systematic anticoagulant Eliquis 5 mg b.i.d., also patient is on metoprolol 25 mg b.i.d., patient is stable is feeling much better compared to when she arrived denies any chest pain palpitation shortness fever or chills, patient is seen by physical meteorologist recently and workup is in progress however patient TSH 9.4, CT scan of the chest showed patient has a thyroid mass and radiologist is recommending fine-needle biopsy however since patient already seen by endocrinology I have talked with the patient and her spouse and they were follow-up with their on physical meteorologist for possible biopsy, patient with elevated D-dimer CTA of the chest negative for pulmonary emboli. (2) Pneumonia: Qualifiers: Laterality: left Lung location: unspecified part of lung Pneumonia type: due to unspecified organism Qualified Code(s): J18.9 - Pneumonia, unspecified organism Code(s): J18.9 - Pneumonia, unspecified organism Status: Acute Assessment and Plan: Continue IV antibiotics. PRN bronchodilators. blood cultures pending. (3) Chest pain: Qualifiers: Chest pain type: unspecified Qualified Code(s): R07.9 - Chest pain, unspecified Code(s): R07.9 - Chest pain, unspecified Status: Acute Assessment and Plan: r/o ACS- chest pain is likely secondary to palpitations. Trend troponin. telemetry. Nitroglycerin SL for chest pain. Appreciate Cardiology input. (4) Chronic hypertension: Code(s): I10 - Essential (primary) hypertension Status: Chronic Assessment and Plan: Monitor blood pressure. Resume lisinopril, amlodipine, and metoprolol in a.m. Subjective Date/time seen: 12/25/20 14:10 Patient is 60-year-old female and a complaint palpitation on and off for over a year however last night patient awakens with a palpitation and shortness of breath presented to emergency depart, patient was in A. fibrillation with RVR, patient was given IV diltiazem and then started on drip that has trended down her heart rate, upon arrival patient had a significant elevated systolic blood pressure of 214/178 there has also improved with diltiazem drip, patient was seen by Multiple Knife Edge Trimmer Operator and patient's CHADS2 Vasc score 2 and started the patient systematic anticoagulant Eliquis 5 mg b.i.d., also patient is on metoprolol 25 mg b.i.d., patient is stable is feeling much better compared to when she arrived denies any chest pain palpitation shortness fever or chills, patient is seen by physical meteorologist recently and workup is in progress however patient TSH 9.4, CT scan of the chest showed patient has a thyroid mass and radiologist is recommending fine-needle biopsy however since patient already seen by endocrinology I have talked with the patient and her spouse and they were follow-up with their on physical meteorologist for possible biopsy, patient with elevated D-dimer CTA of the chest negative for pulmonary emboli. Review of Syst
[2020-12-25] MEDS: APIXABAN 5 MG TABLET PO (20:19)
[2020-12-26] VITALS (8 sets, daily range): BP systolic 131–141; BP diastolic 67–69; PULSE 64–76; RESP 16–18; TEMP 36.1–36.3; O2SAT 97–99
[2020-12-26] MEDS: ACETAMINOPHEN 325 MG TABLET 650 MG PO (05:27)
[2020-12-26 05:37] LABS: Hematocrit 39.6 % (37.0-47.0); Hemoglobin 12.6 g/dL (12.0-15.0); Mean Corpuscular HGB Conc 31.8 g/dl (32-36); Mean Corpuscular Hemoglobin 27.9 pg (26-34); Mean Corpuscular Volume 87.6 fl (80-100); Mean Platelet Volume 10.5 fl (7.4-10.4); Platelet Count Result 237 k/mm3 (150-375); Red Blood Count 4.52 M/mm3 (4.2-5.4); Red Cell Distribution Width 14.4 % (11.5-14.5); White Blood Count 5.4 K/mm3 (4.5-10.0)
[2020-12-26 05:42] LABS: Anion Gap 5 mmol/L (8-16); Blood Urea Nitrogen 17 mg/dL (7-17); Calcium 8.5 mg/dL (8.4-10.2); Carbon Dioxide 31 mmol/L (22-30); Chloride 105 mmol/L (98-107); Estimated CRCL calculation 86 ml/min; Estimated Glomerular Filt Rate > 60; Glucose 101 mg/dL (65-105); Magnesium 1.9 mg/dL (1.6-2.3); Potassium 3.9 mmol/L (3.4-5.0); Sodium 141 mmol/L (137-145)
--- NOTE | 2020-12-26 05:51 | PC.NURSE ---
IV infiltrated while IV antibiotic infusing. Patient request to not receive remaining amount of IV antibiotic. Patient request to not have a new IV initiated due to believing she will be going home. States she would prefer and oral antibiotic.
[2020-12-26] MEDS: dilTIAZem HCL CD 180 MG CAP.ER.24H PO (08:12)
[2020-12-26] MEDS: APIXABAN 5 MG TABLET PO (08:12)
--- NOTE | 2020-12-26 11:34 | PM.PNCARD ---
Progress Note: A&P Assessment and Plan (1) Atrial fibrillation with rapid ventricular response: Code(s): I48.91 - Unspecified atrial fibrillation Status: Acute Assessment and Plan: Symptomatic, rapid ventricular response at presentation presumed new diagnosis converted to and maintaining sinus rhythm this morning. Patient's CHADS2 Vasc score 2 (HTN, female sex). Continue Eliquis 5 mg b.i.d.. Monitor for bleeding. If falls, bleeding, and or head injury return to ER via EMS immediately. Continue diltiazem CD 100 80 mg daily. Heart rate controlled in sinus rhythm, BP improved as well. If stable overnight maintaining sinus rhythm disposition per hospitalist service but okay with discharge home. She will then follow-up with me in the office within the next 4 weeks. Normal EF 60-65% 11/22/2020, normal pulmonary pressures, no significant valve disease. Repeat echocardiogram was inexplicitly ordered once again. Echo personally reviewed. No significant change except diastolic dysfunction appreciated. (2) Chest pain: Qualifiers: Chest pain type: unspecified Qualified Code(s): R07.9 - Chest pain, unspecified Code(s): R07.9 - Chest pain, unspecified Status: Acute Assessment and Plan: Secondary to pneumonia and atrial fibrillation with rapid ventral response, resolved with heart rate control. No recurrence. Ruled out for myocardial infarction with negative serial cardiac enzymes. No evidence for ACS. If recurrence other circumstances ischemic evaluation may be considered as an outpatient. (3) Pneumonia: Qualifiers: Laterality: left Lung location: unspecified part of lung Pneumonia type: due to unspecified organism Qualified Code(s): J18.9 - Pneumonia, unspecified organism Code(s): J18.9 - Pneumonia, unspecified organism Status: Acute Assessment and Plan: Per hospitalist service. Patient much improved control rate AFib and initiation of IV antibiotics. Disposition in this regard per hospitalist service. (4) Chronic hypertension: Code(s): I10 - Essential (primary) hypertension Status: Chronic Assessment and Plan: As above. BP better. Continue diltiazem 180 mg daily, resume lisinopril 40 mg daily. Monitor BP. (5) Morbid obesity: Code(s): E66.01 - Morbid (severe) obesity due to excess calories Status: Acute Assessment and Plan: Discussed lifestyle modification, weight loss also in reducing likelihood of AFib recurrence. Minimize stimulant and caffeine intake. Subjective Date/time seen: Date of service: 12/26/20 11:34 Follow-up for atrial fibrillation with rapid ventricular response Feeling well. Notes mild headache. No chest pain, shortness of breath, palpitations. Brief SVT on telemetry early this morning. No recurrent AFib or atrial flutter. BP better. Tolerating medical therapy thus far. No dizziness. Walking without limitation. Feels well enough to go home. Review of Systems Review of Systems: All systems reviewed & are unremarkable except as noted in HPI and below Constitutional: Constitutional: Reports as per HPI, Reports no additional constitutional complaints and Denies fatigue Eyes: Eyes: Reports as per HPI and Reports no additional eye complaints ENT: Reports system reviewed and no additional complaints, except as documented and Reports as per HPI Cardiovascular: Cardiovascular: Reports as per HPI, Reports no additional cardiovascular complaints, Denies chest pain, Denies palpitations, Reports dyspnea and Reports dyspnea on exertion Respiratory: Respiratory: Reports as per HPI, Reports no additional respiratory complaints, Denies chest congestion, Denies cough, Denies dyspnea and Denies dyspnea on exertion Gastrointestinal: Gastrointestinal: Reports as per HPI, Reports no additional gastrointestinal complaints, Denies abdominal pain, Denies melena, Denies hematochezia, Denies nausea,
--- NOTE | 2020-12-26 12:36 | PM.DS ---
DS: Admitting Diagnosis Admitting Diagnosis Admitting Diagnosis: Chief Complaint: Palpitations and chest pain that woke her up from sleep tonight++ DS: Discharge Diagnosis Discharge Diagnosis (1) Atrial fibrillation with rapid ventricular response: Code(s): I48.91 - Unspecified atrial fibrillation Status: Acute Assessment and Plan: Admit to IMU. CHADSVASc score 2. Continue Cardizem IV for rate control. She will receive a dose of Lopressor IV in the ER. TSH w/ reflex T4. Echocardiogram. Therapeutic Lovenox SC for anticoagulation. Cardiology consultation for New onset atrial fibrillation 12/25/20 14:10 Patient is 60-year-old female and a complaint palpitation on and off for over a year however last night patient awakens with a palpitation and shortness of breath presented to emergency depart, patient was in A. fibrillation with RVR, patient was given IV diltiazem and then started on drip that has trended down her heart rate, upon arrival patient had a significant elevated systolic blood pressure of 214/178 there has also improved with diltiazem drip, patient was seen by Workers Compensation Administrator and patient's CHADS2 Vasc score 2 and started the patient systematic anticoagulant Eliquis 5 mg b.i.d., also patient is on metoprolol 25 mg b.i.d., patient is stable is feeling much better compared to when she arrived denies any chest pain palpitation shortness fever or chills, patient is seen by awning maker and installer recently and workup is in progress however patient TSH 9.4, CT scan of the chest showed patient has a thyroid mass and radiologist is recommending fine-needle biopsy however since patient already seen by endocrinology I have talked with the patient and her spouse and they were follow-up with their on awning maker and installer for possible biopsy, patient with elevated D-dimer CTA of the chest negative for pulmonary emboli. (2) Pneumonia: Qualifiers: Laterality: left Lung location: unspecified part of lung Pneumonia type: due to unspecified organism Qualified Code(s): J18.9 - Pneumonia, unspecified organism Code(s): J18.9 - Pneumonia, unspecified organism Status: Acute Assessment and Plan: Continue IV antibiotics. PRN bronchodilators. blood cultures pending. (3) Chest pain: Qualifiers: Chest pain type: unspecified Qualified Code(s): R07.9 - Chest pain, unspecified Code(s): R07.9 - Chest pain, unspecified Status: Acute Assessment and Plan: r/o ACS- chest pain is likely secondary to palpitations. Trend troponin. telemetry. Nitroglycerin SL for chest pain. Appreciate Cardiology input. (4) Chronic hypertension: Code(s): I10 - Essential (primary) hypertension Status: Chronic Assessment and Plan: Monitor blood pressure. Resume lisinopril, amlodipine, and metoprolol in a.m. DS: Summary Hospital Course Reason for hospitalization: Chief Complaint: Palpitations and chest pain that woke her up from sleep tonight++ Narrative: This is a morbidly obese 60-year-old female with known history of poorly controlled hypertension who is seeing endocrinology for same and presented to the hospital tonight after waking up around 10:00 p.m. this evening with palpitations and substernal chest discomfort. Associated symptoms included shortness of breath. The patient mentions that she has had a previous episode in the past of palpitations but did not seek medical attention at that time. The patient reports that she had COVID-19 back in August. This past week the patient has had respiratory symptoms with cough, fever, and congestion. She was evaluated emergency room this evening and found to be in rapid atrial fibrillation with heart rates in the 140s to 160s. She was treated with 2 IV boluses of Cardizem and placed on a Cardizem IV drip. Routine labs were obtained which were virtually unremarkable and CTA chest was performed which was negative for acute pulmonary embolism but did de
[2020-12-26] MEDS: lisinopriL 20 MG TABLET 40 MG PO (13:28)
[2020-12-27 22:57] LABS: Pneumococcal Antigen Urine Not Detected (Not Detected)
== END 2020-12-26 13:45 | disposition home or self-care (01) | DRG 308 ==
LOC: ANHED 12-25 03:26 → ANHIMU 12-25 12:22
PROVIDERS: Admitting Provider Family Medicine; Emergency Provider Emergency Medicine; Visit Provider Family Medicine
DX: I48.91 Unspecified atrial fibrillation (principal); J18.9 Pneumonia, unspecified organism; Z68.41 Body mass index [BMI] 40.0-44.9, adult; E66.01 Morbid (severe) obesity due to excess calories; I10 Essential (primary) hypertension; Z86.16 Personal history of COVID-19; Z86.718 Personal history of other venous thrombosis and embolism; Z90.49 Acquired absence of other specified parts of digestive tract
CPT/HCPCS: 36415; 71045; 71275; 80048; 80061; 83605; 83690; 83735; 84439; 84443; 84480; 84484; 85025; 85027; 85380; 85610; 85730; 87040; 87070; 87205; 87899; 93005; 93306; 96365; 96366; 99285; A9270; J0456; J0696; J1650; Q9967

== ENCOUNTER 2020-12-27 16:05 | Emergency (ER) | payer OTHER, SELFPAY ==
[2020-12-27] VITALS (23 sets, daily range): BP systolic 140–194; BP diastolic 68–91; PULSE 62–78; RESP 13–20; TEMP 36.1; O2SAT 95–100
--- NOTE | ~2020-12-27 | XR_ITS ---
EXAMINATION: XR chest 2V EXAM DATE: 12/27/2020 16:50 INDICATION: Mid to left-sided chest pain. Pneumonia, COVID+ 08/2020 . TECHNIQUE: Frontal and lateral projections of the chest obtained and reviewed. Comparison is made to prior examination from 12/24/2020, 10/25/2020. FINDINGS: Linear left sided scarring/atelectasis and lateral sulcus blunting unchanged. No acute air space disease, pneumothorax or pleural effusion. There are cholecystectomy clips. Cardiomediastinal s ilhouette is normal. IMPRESSION: Chronic left lung scarring/atelectasis. Reviewed, dictated and finalized at location A.
--- NOTE | 2020-12-27 16:28 | ECG_ITS ---
Measurements Intervals [place] Rate: 71 P: 29 [place]: 134 QRS: 2 QRSD: 98 T: 21 QT: 422 QTc: 460 Interpretive Statements SINUS RHYTHM POSSIBLE LEFT ATRIAL ENLARGEMENT INCOMPLETE RIGHT BUNDLE BRANCH BLOCK BASELINE ARTIFACT- I, II, AVR, AVL, AVF BORDERLINE ECG Electronically Signed On 12-27-2020 19:14:43 CDT by Miah Brewer D.O.
[2020-12-27] MEDS: ASPIRIN 81 MG CHEWABLE TABLET 324 MG PO (16:44)
[2020-12-27 16:52] LABS: Prothrombin Time 13.3 Seconds (11.1-14.7)
--- NOTE | 2020-12-27 16:52 | ED.ARRPALP ---
HPI - Arrhythmia/Palpitations General Chief Complaint: Arrhythmia/Palpitations Stated Complaint: htn, tachycardia, recent afib Time Seen by Provider: 12/27/20 16:27 Source: patient Mode of arrival: ambulatory Limitations: no limitations History of Present Illness HPI narrative: Patient is a 60-year-old female complaining of palpitations accompanied by chest discomfort and elevated blood pressure at home. Patient was recently admitted due to new onset atrial fib RVR was placed on diltiazem and Eliquis, states that she had a full work-up done including a stress test and echo. Palpitations resolved. Patient states that her chest discomfort is substernal, 5 out of 10, nonradiating, only lasted for a few minutes and now resolved. Patient denies any shortness of breath, abdominal pain, nausea, vomiting, diaphoresis, fever or chills. Related Data Home Medications Medication Instructions Recorded Confirmed lisinopril 40 mg PO DAILY 12/24/20 12/25/20 Allergies Allergy/AdvReac Type Severity Reaction Status Date / Time No Known Allergies Allergy Verified 12/27/20 16:24 Review of Systems Review of Systems: All systems reviewed & are unremarkable except as noted in HPI and below Constitutional: Constitutional: Denies body ache(s), Denies chills, Denies excessive sweating, Denies fatigue, Denies fever(s), Denies headache(s), Denies lethargy, Denies malaise, Denies weakness and Denies weight loss Eyes: Eyes: Denies blurry vision, Denies change in vision and Denies loss of vision ENT: Denies dizziness, Denies ear discharge, Denies headache(s), Denies lip swelling, Denies epistaxis, Denies nasal congestion, Denies neck pain, Denies throat swelling and Denies tongue swelling Cardiovascular: Cardiovascular: Denies chest pain with activity, Denies diaphoresis, Denies rapid heart rate, Denies edema, Denies irregular heart rhythm, Denies lightheadedness, Denies dyspnea and Denies dyspnea on exertion Respiratory: Respiratory: Denies chest congestion, Denies cough, Denies hemoptysis, Denies dyspnea and Denies dyspnea on exertion Gastrointestinal: Gastrointestinal: Denies abdominal pain, Denies melena, Denies hematochezia, Denies diarrhea, Denies nausea, Denies vomiting and Denies hematemesis Musculoskeletal: Musculoskeletal: Denies abnormal gait, Denies deformity, Denies joint swelling, Denies limited range of motion, Denies neck pain and Denies numbness Neurologic: Denies Abnormal speech present, Denies abnormal gait, Denies confusion, Denies dizziness, Denies headache(s), Denies focal weakness, Denies loss of vision, Denies numbness, Denies Other visual disturbances, Denies Sensory deficit (Neuro) and Denies weakness Psychiatric: Psychiatric: Denies confusion, Denies depression, Denies auditory hallucinations, Denies homicidal ideation and Denies suicidal ideation Endocrine: Endocrine: Denies cold intolerance, Denies excessive sweating, Denies fatigue, Denies heat intolerance and Denies palpitations Hematologic/Lymphatic: Hematologic/Lymphatic: Denies easy bleeding and Denies easy bruising Allergic/Immunologic: Allergic/Immunologic: Denies lip swelling, Denies throat swelling and Denies tongue swelling PMFSH Past Medical History Medical History Chronic hypertension DVT (deep venous thrombosis) Surgical History Surgical History History of cholecystectomy Family History Family History Sibling Multiple myeloma Social History Social History Smoking status: Never smoker Alcohol intake: never Substance use: never Gender identity (if verbalized by the patient): Female Spiritual care concerns: No Exam Const: General: cooperative, healthy appearing, comfortable, no acute distress, well developed, alert and
[2020-12-27 16:53] LABS: Basophils Percent Auto 0.6 % (0.2-1.2); Eosinophils Absolute Auto 0.2 K/mm3 (0-0.3); Eosinophils Percent Auto 2.9 % (0-4.4); Hematocrit 42.4 % (37.0-47.0); Hemoglobin 13.7 g/dL (12.0-15.0); Immature Granulocyte Absolute 0.03 K/mm3 (0.00-0.031); Immature Granulocyte Percent A 0.4 % (0-0.5); Lymphocytes Absolute Auto 2.42 K/mm3 (0.9-3.2); Lymphocytes Percent Auto 33.6 % (18.3-44.2); Mean Corpuscular HGB Conc 32.3 g/dl (32-36); Mean Corpuscular Hemoglobin 28.1 pg (26-34); Mean Corpuscular Volume 87.1 fl (80-100); Mean Platelet Volume 10.1 fl (7.4-10.4); Monocytes Absolute Auto 0.7 K/mm3 (0.1-0.6); Monocytes Percent Auto 9.8 % (2.6-8.5); Neutrophils Absolute Auto 3.8 K/mm3 (1.3-6.7); Neutrophils Percent Auto 52.7 % (45.5-73.1); Partial Thromboplastin Time 31.4 SECONDS (22.3-36.8); Platelet Count Result 255 k/mm3 (150-375); Red Blood Count 4.87 M/mm3 (4.2-5.4); Red Cell Distribution Width 13.9 % (11.5-14.5); White Blood Count 7.2 K/mm3 (4.5-10.0)
[2020-12-27 16:55] LABS: Anion Gap 6 mmol/L (8-16); Blood Urea Nitrogen 15 mg/dL (7-17); Calcium 9.1 mg/dL (8.4-10.2); Carbon Dioxide 31 mmol/L (22-30); Chloride 105 mmol/L (98-107); Estimated CRCL calculation 99 ml/min; Estimated Glomerular Filt Rate > 60; Glucose 92 mg/dL (65-105); Potassium 3.9 mmol/L (3.4-5.0); Sodium 142 mmol/L (137-145)
[2020-12-27 17:07] LABS: Troponin I < 0.012 ng/mL (0.000-0.034)
[2020-12-27 19:21] LABS: Troponin I < 0.012 ng/mL (0.000-0.034)
== END 2020-12-27 19:55 | disposition home or self-care (01) ==
PROVIDERS: Emergency Provider Emergency Medicine; PCP Family Medicine
DX: R00.2 Palpitations (principal); I10 Essential (primary) hypertension; R07.89 Other chest pain; Z86.718 Personal history of other venous thrombosis and embolism; I45.10 Unspecified right bundle-branch block; R94.31 Abnormal electrocardiogram [ECG] [EKG]
CPT/HCPCS: 36415; 71046; 80048; 84484; 85025; 85610; 85730; 93005; 99284; A9270

== ENCOUNTER 2024-12-22 10:15 | Outpatient (RCR) | payer MEDICARE, SELFPAY ==
--- NOTE | 2024-11-23 16:15 | OPREHPOC ---
Outpatient Therapy Plan of Care This is a Multidisciplinary Plan of Care that may contain components documented by all disciplines (PT, OT, and ST.) PT Problem 1 PT Problem #1 Knowledge Deficit PT Goal 1 Goal / Goal Update Jewell with HEP Target Visit 4 PT Goal 2 Goal / Goal Update Report no pain greater than 2/10 for 2 consecutive weeks Target Visit 8 PT Problem 2 PT Problem #2 Impaired Range of Motion PT Goal 1 Goal / Goal Update 1. Achieve terminal left knee extension for even gait cycle 2. Improve L knee flexion ROM to 125 degrees to improve squatting ability and foot clearance Target Visit 10 PT Problem 3 PT Problem #3 Impaired Strength PT Goal 1 Goal / Goal Update 1. Improve gross L knee strength to 5/5 to improve knee stability with ADLs 2. Improve troy hip flexion strength to 4+5 to improve foot clearance with foot progression Target Visit 10
--- NOTE | 2024-11-23 16:15 | PTOPEVAL1 ---
Assessment and note entered by Luis Alonso, PT Evaluation Information Assessment Status Evaluation Diagnosis Left Total knee arthroplasty ICD-10 Condition Codes (PT) Pain in left knee M25.562 Onset 10/29/24 Subjective Information Reports that overall she feels she has been doing fairly well. She has a bike at home that she has been using for knee mobility. Reports that she feels she has likely been limiting her knee extension when she is walking. Overall she has been satisfied with hew surgery. Feels that her swelling is fairly controlled at this time. She does report that sitting for long periods of time hurts her knee. Reports that she waited to do any stairs until she started PT. Reported Pain Level Pain Score 1: Self Report Assessment PT Clinical Summary Patient presents with signs and symptoms consistent with subacute TKA. Demonstrates minimal loss of left knee terminal knee extension but is limiting gait. Lacking terminal knee flexion as well. Strength deficits noted in hips and knee flexion. Patient will benefit from skilled therapy to address deficits to improve gait cycle and mobility for full functional return. Plan of Care Interventions Gait Training,Manual Therapy,Neuro Re-education, Therapeutic Activities,Therapeutic Exercise PT Services Indicated Yes Treatment Frequency and 2x/week for 10 visits Duration These treatments will address the objective and functional deficits as defined above. The patient will be advanced safely and appropriately in order for the patient to progress towards his/her prior level of function. Additional exercises will be introduced and as well as a comprehensive home exercise program upon discharge, if needed, ?to ensure carryover of functional gains achieved in the clinic. This treatment plan has been reviewed and agreement upon by the patient.
--- NOTE | 2024-12-22 11:06 | OPREHPOC ---
Outpatient Therapy Plan of Care This is a Multidisciplinary Plan of Care that may contain components documented by all disciplines (PT, OT, and ST.) PT Problem 1 PT Problem #1 Knowledge Deficit PT Goal 1 Goal / Goal Update [place] with HEP Target Visit 4 Progress Met PT Goal 2 Goal / Goal Update Report no pain greater than 2/10 for 2 consecutive weeks 12/22/24: 1. progressing Target Visit 8 Progress Partially Met PT Problem 2 PT Problem #2 Impaired Range of Motion PT Goal 1 Goal / Goal Update 1. Achieve terminal left knee extension for even gait cycle 2. Improve L knee flexion ROM to 125 degrees to improve squatting ability and foot clearance 12/22/24: 1. met 2. met Target Visit 10 PT Problem 3 PT Problem #3 Impaired Strength PT Goal 1 Goal / Goal Update 1. Improve gross L knee strength to 5/5 to improve knee stability with ADLs 2. Improve [place] hip flexion strength to 4+5 to improve foot clearance with foot progression 12/22/24: 1. met 2. met Target Visit 10
--- NOTE | 2024-12-22 11:06 | PTOPDC ---
Assessment and note entered by Fritz Prather, PT, DPT Evaluation Information Assessment Status Discharge Diagnosis Left Total knee arthroplasty ICD-10 Condition Codes (PT) Pain in left knee M25.562 Onset 10/29/24 Subjective Information Pt states she is doing great. She states she still notices some hip weakness that impairs her function. States she did a lot of standing and housework yesterday that she was having a bit of pain last night. Reported Pain Level Pain Score 0: Self Report Assessment PT Clinical Summary Patient presents to therapy today following 10 visits of skilled therapy following a L TKA. Pt demonstrates improved gait speed, knee strength and ROM, and improved functional mobility. She has met or progressed well towards her therapy goals and no longer requires skilled services. She will be discharged at this time. Plan of Care PT Services Indicated No
== END 2024-12-22 11:49 | disposition home or self-care (01) ==
LOC: ANHGOSHPT 10:15
DX: M25.562 Pain in left knee (principal); G89.29 Other chronic pain
CPT/HCPCS: 97016; 97110; 97140; 97161; 97530